=== PATIENT | male | born 1970 | race Two or more races ===

== ENCOUNTER 2017-02-26 19:30 | Inpatient (IN) | payer OTHER ==
[~2017-02-26] VITALS: Ht 188 cm; Wt 113.4 kg
[2017-02-26 22:11] LABS: Basophils # (auto) 0.1 uL; Basophils % (auto) 0.8 % (0.0-2.0); Eosinophils # (auto) 0.4 uL; Hematocrit 41.8 % (41.0-53.0); Hemoglobin 14.3 g/dL (13.5-17.5); Lymphocytes % (auto) 48.8 % (10.0-50.0); Mean Corpuscular Hemoglobin 31.8 pg (28.0-32.0); Mean Corpuscular Hgb Conc. 34.2 g/dL (32.0-36.0); Mean Corpuscular Volume 93.1 fL (80.0-100.0); Mean Platelet Volume 7.7 fL (6.9-10.8); Monocytes # (auto) 0.8 uL; Monocytes % (auto) 9.9 % (0.0-12.0); Neutrophils # (auto) 2.9 uL; Neutrophils % (auto) 35.5 % (37.0-80.0); Platelet Count (auto) 122 10^3/uL (140-450); Red Cell Distribution Width 14.8 % (11.8-14.3); White Blood Cell 8.1 10^3/uL (4.4-10.8)
[2017-02-26 22:28] LABS: Albumin 3.4 g/dL (3.4-5.0); Anion Gap 8 (5-15); BUN/Creatinine Ratio 16.7; Blood Urea Nitrogen 12 mg/dL (7-18); Calcium 8.4 mg/dL (8.5-10.1); Carbon Dioxide 26 mmol/L (21-32); Chloride 112 mmol/L (98-107); GFR African American 150 mL/min; GFR Non-African American 124 mL/min; Glucose 111 mg/dL (74-106); Magnesium 2.3 mg/dL (1.6-2.6); Partial Thromboplastin Time 35.6 sec (22.64-33.71); Potassium 4.1 mmol/L (3.5-5.1); Sodium 146 mmol/L (136-145)
[2017-02-26 22:41] LABS: Alkaline Phosphatase 75 U/L (45-117); Aspartate Aminotransferase 35 U/L (15-37); Bilirubin, Total 0.2 mg/dL (0.2-1.0); Temperature: 22.4 C (20.0-25.0); Total Protein 6.8 g/dL (6.4-8.2)
[2017-02-26] MEDS ORDERED: MORPHINE SULFATE 10 MG/ML INJ 1ML SDV IV ONE (23:00)
[2017-02-26] MEDS ORDERED: ONDANSETRON HCL 4 MG/2 ML VIAL IV ONE (23:00)
[2017-02-26] MEDS ORDERED: NITROGLYCERIN 0.4 MG SL TAB SL PRN (23:45)
[2017-02-26] MEDS ORDERED: TEMAZEPAM 15 MG CAP PO PRN (23:45)
[2017-02-26] MEDS ORDERED: ACETAMINOPHEN 325 MG TAB PO PRN (23:45)
[2017-02-27] MEDS: SODIUM CHLORIDE 0.9% 1,000 ML IV SCH ×2 (00:13→13:36)
[2017-02-27 01:00] LABS: Urine RBC None Seen /hpf (0 - 3)
[2017-02-27 01:15] LABS: Urine Bilirubin Negative (Negative); Urine Blood Negative /uL (Negative); Urine Color Yellow (Yellow); Urine Glucose Normal (Normal); Urine Ketone Negative (Negative); Urine Mucus FEW (None Seen); Urine Nitrite Negative (Negative); Urine Squamous Epithelial Cell FEW /hpf (<5); Urine Urobilinogen Normal (Negative); Urine pH 5.5 (5.0-8.0)
[2017-02-27 02:08] LABS: Basophils # (auto) 0.1 uL; Basophils % (auto) 1.3 % (0.0-2.0); Eosinophils # (auto) 0.4 uL; Eosinophils % (auto) 5.1 % (0.0-7.0); Hematocrit 41.1 % (41.0-53.0); Hemoglobin 13.9 g/dL (13.5-17.5); Lymphocytes # (auto) 4.2 uL; Lymphocytes % (auto) 52.1 % (10.0-50.0); Mean Corpuscular Hemoglobin 31.8 pg (28.0-32.0); Mean Corpuscular Hgb Conc. 33.8 g/dL (32.0-36.0); Mean Platelet Volume 7.7 fL (6.9-10.8); Monocytes # (auto) 0.9 uL; Monocytes % (auto) 11.5 % (0.0-12.0); Neutrophils # (auto) 2.4 uL; Nucleated Red Blood Cells % 0.2 %; Platelet Count (auto) 121 10^3/uL (140-450); Red Cell Distribution Width 14.8 % (11.8-14.3)
[2017-02-27] MEDS: HYDROcodone-ACET 5/325MG TAB PO PRN ×2 (02:20→06:31)
[2017-02-27 02:29] LABS: Albumin 3.4 g/dL (3.4-5.0); BUN/Creatinine Ratio 16.9; Calcium 8.3 mg/dL (8.5-10.1); Potassium 4.3 mmol/L (3.5-5.1)
[2017-02-27 02:31] LABS: Bilirubin, Total 0.3 mg/dL (0.2-1.0); Total Protein 6.6 g/dL (6.4-8.2)
[2017-02-27] MEDS ORDERED: DOPamine 1600MCG/ML D5W 250 ML IV ONE (03:11)
[2017-02-27] MEDS: DOPamine 1600MCG/ML D5W 250 ML IV SCH ×2 (03:22→15:30)
[2017-02-27] MEDS: ONDANSETRON HCL 4 MG/2 ML VIAL IV PRN (09:45)
[2017-02-27] MEDS: MORPHINE SULFATE 10 MG/ML INJ 1ML SDV IV PRN ×2 (09:45→16:30)
[2017-02-27] MEDS ORDERED: SOTALOL HCL 80 MG TAB PO SCH (10:00)
[2017-02-27] MEDS: ASPirin 81 mg TAB PO SCH (10:11)
[2017-02-27] MEDS: GABAPENTIN 300 MG CAP PO SCH ×2 (10:11→22:16)
[2017-02-27] MEDS: FAMOTIDINE 20 MG TAB PO SCH ×2 (10:12→22:16)
[2017-02-27] MEDS ORDERED: NITROGLYCERIN 2% OINT 1GM PKG TD ONE (13:15)
[2017-02-27] MEDS ORDERED: ADENOSINE 91 MG in GIVE UN-DILUTED 0 ML IV ONE (13:45)
[2017-02-27] MEDS ORDERED: ONDANSETRON HCL 4 MG/2 ML VIAL ONE (14:51)
[2017-02-27] MEDS ORDERED: WARFARIN SODIUM 5 MG TAB PO ONE (17:00)
[2017-02-28] MEDS: ONDANSETRON HCL 4 MG/2 ML VIAL IV PRN ×2 (01:44→16:30)
[2017-02-28] MEDS: MORPHINE SULFATE 10 MG/ML INJ 1ML SDV IV PRN (01:44)
[2017-02-28 05:06] LABS: INR 1.85 (0.9-1.15); Partial Thromboplastin Time 34.1 sec (22.64-33.71); Prothrombin Time 20.3 sec (9.37-12.3)
[2017-02-28] MEDS: SODIUM CHLORIDE 0.9% 1,000 ML IV SCH ×2 (07:48→17:58)
[2017-02-28] MEDS: FAMOTIDINE 20 MG TAB PO SCH ×2 (09:10→21:50)
[2017-02-28] MEDS: ASPirin 81 mg TAB PO SCH (09:10)
[2017-02-28] MEDS: GABAPENTIN 300 MG CAP PO SCH ×2 (09:10→21:50)
[2017-02-28] MEDS: DOPamine 1600MCG/ML D5W 250 ML IV SCH (10:03)
[2017-02-28] MEDS: HYDROcodone-ACET 5/325MG TAB PO PRN ×2 (11:10→16:30)
[2017-02-28 14:00] VITALS: BP 110/65
[2017-02-28 15:19] VITALS: BP 110/65
[2017-02-28 17:00] VITALS: BP 104/64
[2017-02-28] MEDS ORDERED: WARFARIN SODIUM 2.5 MG TAB PO ONE ×2 (17:00)
[2017-02-28 20:00] VITALS: BP 106/62
[2017-02-28 22:00] VITALS: BP 101/49
[2017-03-01 05:00] VITALS: BP 105/62
[2017-03-01 06:07] LABS: Basophils # (auto) 0 uL; Basophils % (auto) 0.4 % (0.0-2.0); Eosinophils # (auto) 0.3 uL; Eosinophils % (auto) 5.1 % (0.0-7.0); Hematocrit 39.8 % (41.0-53.0); Hemoglobin 13.7 g/dL (13.5-17.5); Lymphocytes % (auto) 46.8 % (10.0-50.0); Mean Corpuscular Hgb Conc. 34.3 g/dL (32.0-36.0); Mean Corpuscular Volume 93.3 fL (80.0-100.0); Mean Platelet Volume 7.7 fL (6.9-10.8); Monocytes # (auto) 0.6 uL; Monocytes % (auto) 10.1 % (0.0-12.0); Neutrophils # (auto) 2.4 uL; Neutrophils % (auto) 37.6 % (37.0-80.0); Nucleated Red Blood Cells % 0.1 %; Platelet Count (auto) 99 10^3/uL (140-450); Red Cell Distribution Width 14.4 % (11.8-14.3); White Blood Cell 6.4 10^3/uL (4.4-10.8)
[2017-03-01 06:22] LABS: INR 1.83 (0.9-1.15); Partial Thromboplastin Time 34.8 sec (22.64-33.71); Prothrombin Time 20.1 sec (9.37-12.3)
[2017-03-01 06:34] LABS: Potassium 4.1 mmol/L (3.5-5.1)
[2017-03-01 06:39] LABS: Albumin 3.1 g/dL (3.4-5.0); BUN/Creatinine Ratio 20.3; Calcium 8.4 mg/dL (8.5-10.1)
[2017-03-01 06:41] LABS: Bilirubin, Total 0.6 mg/dL (0.2-1.0); Total Protein 6.4 g/dL (6.4-8.2)
[2017-03-01 09:00] VITALS: BP 127/65
[2017-03-01] MEDS ORDERED: ADENOSINE 98 MG in GIVE UN-DILUTED 0 ML IV ONE (09:00)
[2017-03-01] MEDS: GABAPENTIN 300 MG CAP PO SCH ×2 (09:30→21:48)
[2017-03-01] MEDS: SODIUM CHLORIDE 0.9% 1,000 ML IV SCH (09:30)
[2017-03-01] MEDS: ASPirin 81 mg TAB PO SCH (09:30)
[2017-03-01] MEDS: FAMOTIDINE 20 MG TAB PO SCH ×2 (09:30→21:49)
[2017-03-01 17:00] VITALS: BP 118/73
[2017-03-01] MEDS ORDERED: WARFARIN SODIUM 2.5 MG TAB PO ONE (17:00)
[2017-03-01] MEDS: HYDROcodone-ACET 5/325MG TAB PO PRN (18:32)
[2017-03-01 20:00] VITALS: BP 120/84
[2017-03-01 22:00] VITALS: BP 120/74
[2017-03-02] MEDS: SODIUM CHLORIDE 0.9% 1,000 ML IV SCH ×2 (00:07→16:41)
[2017-03-02] MEDS: HYDROcodone-ACET 5/325MG TAB PO PRN ×4 (00:11→21:45)
[2017-03-02 05:00] VITALS: BP 110/67
[2017-03-02 07:49] VITALS: BP 135/78
[2017-03-02] MEDS: GABAPENTIN 300 MG CAP PO SCH ×2 (08:55→17:29)
[2017-03-02] MEDS: FAMOTIDINE 20 MG TAB PO SCH ×2 (08:55→21:45)
[2017-03-02] MEDS: ASPirin 81 mg TAB PO SCH (08:55)
[2017-03-02 09:32] LABS: INR 1.59 (0.9-1.15); Partial Thromboplastin Time 29.4 sec (22.64-33.71); Prothrombin Time 17.4 sec (9.37-12.3)
[2017-03-02 09:50] VITALS: BP 113/70
[2017-03-02] MEDS ORDERED: diphenhdrAMINE HCL 50 MG/1 ML VL IV ONE (10:15)
[2017-03-02] MEDS ORDERED: IOHEXOL 350 MG/ML 100ML IJ ONE (13:42)
[2017-03-02] MEDS ORDERED: LIDOCAINE 2%HCL (LOCAL ANESTH.) INJ 20ML MDV ONE (13:43)
[2017-03-02 14:00] VITALS: BP 122/78
[2017-03-02] MEDS ORDERED: MIDAZOLAM HCL 1MG/1ML-2 ML VIAL ONE (14:35)
[2017-03-02] MEDS ORDERED: fentaNYL CITRATE 100 MCG/2 ML VL ONE (14:35)
[2017-03-02] MEDS ORDERED: ANGIOMAX 250 MG VIAL IV ONE (14:51)
[2017-03-02] MEDS ORDERED: SODIUM CHL 0.9% 0 ML ONE (14:51)
[2017-03-02] MEDS ORDERED: SODIUM CHLORIDE 0.9% 1,000 ML IV SCH (16:12)
[2017-03-02] MEDS ORDERED: WARFARIN SODIUM 10 MG TAB PO ONE (17:00)
[2017-03-02] MEDS ORDERED: GABA-339 PO (17:04)
[2017-03-02 20:00] VITALS: BP 111/65
[2017-03-03 05:00] VITALS: BP 112/67
[2017-03-03] MEDS: SODIUM CHLORIDE 0.9% 1,000 ML IV SCH (05:35)
[2017-03-03 06:05] LABS: Basophils # (auto) 0 uL; Basophils % (auto) 0.6 % (0.0-2.0); Eosinophils # (auto) 0.3 uL; Hematocrit 39.3 % (41.0-53.0); Hemoglobin 13.5 g/dL (13.5-17.5); Lymphocytes # (auto) 2.6 uL; Lymphocytes % (auto) 43.6 % (10.0-50.0); Mean Corpuscular Hemoglobin 32.4 pg (28.0-32.0); Mean Corpuscular Hgb Conc. 34.3 g/dL (32.0-36.0); Mean Corpuscular Volume 94.5 fL (80.0-100.0); Mean Platelet Volume 7.4 fL (6.9-10.8); Monocytes # (auto) 0.6 uL; Monocytes % (auto) 10.6 % (0.0-12.0); Neutrophils # (auto) 2.4 uL; Neutrophils % (auto) 40.2 % (37.0-80.0); Nucleated Red Blood Cells % 0.1 %; Platelet Count (auto) 102 10^3/uL (140-450); Red Cell Distribution Width 14.7 % (11.8-14.3)
[2017-03-03 06:29] LABS: Albumin 3.1 g/dL (3.4-5.0); BUN/Creatinine Ratio 20.9; Bilirubin, Total 0.5 mg/dL (0.2-1.0); Calcium 8.3 mg/dL (8.5-10.1); Potassium 4.4 mmol/L (3.5-5.1); Total Protein 6.4 g/dL (6.4-8.2)
[2017-03-03 06:31] LABS: INR 1.45 (0.9-1.15); Prothrombin Time 15.9 sec (9.37-12.3)
[2017-03-03 07:29] VITALS: BP 119/74
[2017-03-03] MEDS: FAMOTIDINE 20 MG TAB PO SCH (09:22)
[2017-03-03] MEDS: ASPirin 81 mg TAB PO SCH (09:22)
[2017-03-03] MEDS: HYDROcodone-ACET 5/325MG TAB PO PRN (09:22)
[2017-03-03] MEDS ORDERED: GABAPENTIN 400 MG CAP PO SCH (10:00)
[2017-03-03 11:56] VITALS: BP 108/77
[2017-03-03 16:42] VITALS: BP 120/76
[2017-03-03] MEDS ORDERED: WARFARIN SODIUM 2.5 MG TAB PO ONE (17:00)
[2017-03-03] MEDS: GABAPENTIN 300 MG CAP PO SCH (17:19)
== END 2017-03-03 21:35 | DRG 287 ==
LOC: ER 19:43 → TELE 19:44 → TELE-WESTW 02-28 14:02
PROVIDERS: ADMIT Internal Medicine; ATTEND Internal Medicine
PROC: 4A023N7 Measurement of Cardiac Sampling and Pressure, Left Heart, Percutaneous Approach (ICD-10-PCS; principal; 2017-03-02)
PROC: B2111ZZ Fluoroscopy of Multiple Coronary Arteries using Low Osmolar Contrast (ICD-10-PCS; 2017-03-02)
DX: I20.9 Angina pectoris, unspecified (principal); D68.69 Other thrombophilia; I42.9 Cardiomyopathy, unspecified; B19.20 Unspecified viral hepatitis C without hepatic coma; I48.2 Chronic atrial fibrillation; I48.0 Paroxysmal atrial fibrillation; I49.3 Ventricular premature depolarization; I50.9 Heart failure, unspecified; Z80.41 Family history of malignant neoplasm of ovary; Z80.0 Family history of malignant neoplasm of digestive organs; Z88.8 Allergy status to other drugs, medicaments and biological substances; Z90.89 Acquired absence of other organs; Z90.49 Acquired absence of other specified parts of digestive tract
CPT/HCPCS: 36415; 71010; 78452; 80053; 80307; 81001; 83735; 83880; 84443; 84484; 85025; 85610; 85730; 86850; 86900; 86901; 93005; 93017; 93306; 93458; 94761; 96361; 96374; 96375; 96376; 99152; 99153; J0153; J2250; J2405